=== PATIENT | male | born 1965 | race Caucasian/White ===

== ENCOUNTER → 2016-11-06 | Day surgery (SDC) | payer OTHER ==
[2016-11-06] VITALS (19 sets, daily range): BP systolic 110–128; BP diastolic 59–77; PULSE 60–78; RESP 13–22; Ht 172.7 cm; Wt 100.0 kg
[~2016-11-06] VITALS: Ht 172.7 cm; Wt 100.0 kg
[~2016-11-06] MED LIST: ACETAMINOPHEN 325 MG TAB PO PRN; AL HYDROX/MG HYDROX/SIMETH 30 ML CUP PO PRN; AMIL5TAB2 PO; FENTAnyl 50 MCG/ML VIAL ONE; FURO20TA3 PO; HEPARIN 1000 UNITS/ML 10 ML INJ ONE; IODIXANOL LOCM 100 ML BTL ONE; LIDOCAINE 1% (MDV) 20 ML INJ ONE; MIDAZOLAM 1 MG/ML 2 ML INJ ONE; NITROGLYCERIN (IC) 100 MCG/ML INJ ONE; ONDANSETRON 4 MG INJ IV PRN; PROP10TA6 PO; SOD CHLORIDE 0.9% 1,000 ML IV SCH; VERAPAMIL 5 MG INJ ONE; morphine 2 MG INJ IV PRN
[2016-11-06 11:06] LABS: ADD SCAN DIFF NO
[2016-11-06 11:17] LABS: ABNORMAL IP MESSAGE 1; BASOPHILS % 1.3 % (0.0-2.0); EOSINOPHILS # 0.2 10^3/ul (0.0-0.5); EOSINOPHILS % 5.6 % (0.0-7.0); HEMATOCRIT 38.9 % (42.0-52.0); HEMOGLOBIN 13.5 g/dl (14.0-18.0); LYMPHOCYTES # 1.1 10^3/ul (0.8-2.9); LYMPHOCYTES % 35.4 % (15.0-51.0); MEAN CORPUSCULAR HGB CONC 34.7 g/dl (32.0-37.0); MEAN CORPUSCULAR VOLUME 92.2 fl (82.0-101.0); MEAN PLATELET VOLUME 11.5 fl (7.4-10.4); MONOCYTE # 0.5 10^3/ul (0.3-0.9); MONOCYTES % 14.7 % (0.0-11.0); NEUTROPHIL # 1.4 10^3/ul (1.6-7.5); PLATELET COUNT 58 10^3/UL (140-415); RED BLOOD COUNT 4.22 10^6/ul (4.70-6.10); RED CELL DISTRIBUTION WIDTH 15.3 % (11.5-14.5); WHITE BLOOD COUNT 3.2 10^3/ul (4.8-10.8)
[2016-11-06 11:34] LABS: INR 1.65; PROTIME 19.6 Sec (12.2-14.2); PT RATIO 1.5
[2016-11-06 11:43] LABS: CHOL/HDL RATIO 2.9 RATIO
[2016-11-06 11:54] LABS: CALCIUM 8.3 mg/dl (8.4-10.2); CREATININE 0.62 mg/dl (0.61-1.24); POTASSIUM 3.8 mmol/L (3.5-5.1)
[2016-11-06 12:43] LABS: PARTIAL THROMBOPLASTIN TIME 42.6 Sec (25.0-35.0)
--- NOTE | 2016-11-06 13:00 | CARRPT ---
DATE OF PROCEDURE: 11/06/2016 TIME OF PROCEDURE: 1. Left heart catheterization. 2. Coronary angiography. 3. Left ventriculogram. 4. Moderate conscious sedation x30 minutes. ATTENDING PHYSICIAN: Alice Shields MD REFERRING PHYSICIAN: Self. INDICATION: Preoperative abnormal cardiac stress test, for liver transplant. TYPE OF ANESTHESIA: Conscious, local. BRIEF HISTORY: Mr. Aguayo is a 51-year-old male with history of liver cirrhosis who is preop f or listing for transplant of liver, who underwent cardiac stress test revealing positive ischemia. N ow brought to cardiac catheterization lab in order to assess for possibility of significant obstruct silvia coronary artery disease lending to positive stress test findings. PROCEDURE: After informed consent was obtained, the patient was brought to [facility] cardiac catheterization lab. His right radial area was prepped and draped in the usual sterile fashion. With modified Seldinger technique, a 6-[place] arterial sheath was placed in the radial ar rene. A JL3.5 catheter was used to cannulate the left main coronary ostium, after patient was noted to have a loop with spasm that was treated with nitroglycerin with improvement, after with contrast injection, multiple views of these vessels were obtained. The JL3.5 was removed over a guidewire a nd a JR4 was used to cannulate the right coronary arterial ostium. With contrast injection, multipl e views of the right coronary arterial system obtained. JR4 was then used to cross the LV and left ventricular end-diastolic pressure was measured. LV gram was undertaken revealing a preserved EF of 60% to 65%, and pullback across the aortic valve to assess for significant gradient, which there wa s not and removed. This subsequently completed the procedure. The patient's sheath was removed. T R band was applied. There were no noted complications. FINDINGS: Coronary angiography: Left main short 4.5 mm, no significant stenoses. Circumflex proxi mary 3.5 mm vessel with a mid body 20% stenosis. Remainder of the circumflex is free of significan t focal stenoses, gives off a distal branching obtuse marginal 3 mm, no significant focal stenoses. The LAD proximally is a 3.5 mm vessel and has no significant focal stenoses throughout its entirety , rounds the apex, gives off a proximal and a mid branching diagonal, each approximately 2 mm with n o significant focal stenoses. The ramus branch 2.5 mm with no significant focal stenoses, just ____ _ right on top of it but second, splits right there. The right coronary artery proximally is a 3.5 mm vessel, no significant focal stenoses. A 2 mm PDA and 2 mm posterolateral branch, each wi th no significant focal stenoses. Left ventriculogram revealed a left ventricular ejection fraction of 60% to 65%. Left ventricular e nd-diastolic pressure of 28. No significant aortic stenosis by gradient, 1+ mitral regurgitation. TOTAL FLUOROSCOPY TIME: 5.7 minutes. TOTAL CONTRAST: 70 mL. IMPRESSION: 1. Essentially normal coronary arteries with very mild nonobstructive coronary artery disease. 2. Preserved left ventricular systolic function. 3. Elevated left heart filling pressures. 4. No significant aortic stenosis by gradient. 5. 1+ mitral regurgitation. RECOMMENDATIONS: In light of procedure and findings at this time would: 1. Maximize medical management. 2. Aggressive risk factor reduction. 3. The patient at this time has no cardiac contraindication of listing for liver transplantation. Dictated By: ALICE RICHEY/BOSSMAN Conf#: [id number] DID#: [id number]
--- NOTE | 2016-11-07 00:01 | RADRPT ---
Vent Rate: 73 bpm RR Interval: 0 msec RI Interval: 146 msec QRS Duration: 86 msec QT Interval: 380 msec QTC Interval: 418 msec P-R-T [place]: 65 - 24 - 39 degrees Normal sinus rhythm Low voltage QRS Borderline ECG Electronically Signed By: Johann Meneses [id number]
--- NOTE | 2016-11-07 10:46 | RADRPT ---
PROCEDURE: XR Chest. CLINICAL INDICATION: Preop TECHNIQUE: Anterior chest x-ray. COMPARISON: None. FINDINGS: The lungs are clear. No pleural effusion identified. There is no evidence of pneumothorax. The cardiomediastinal silhouette is unremarkable. The soft tissues are normal. Osseous structures are unremarkable. IMPRESSION: 1. No acute disease is seen in the chest. RPTAT: QQ .Nicholas De Guzman MD, MD Date Time Electronically viewed and signed by .Nicholas De Guzman MD, on 11/07/2016 10:45 .M/
== END | disposition home or self-care (01) ==
LOC: SDS 10:17 → CCL 10:25
PROVIDERS: ATTEND Internal Medicine
DX: I25.10 Atherosclerotic heart disease of native coronary artery without angina pectoris (principal); I34.0 Nonrheumatic mitral (valve) insufficiency
CPT/HCPCS: 71010; 80048; 80061; 85025; 85610; 85730; 93005; 93458; C1769; C1887; J1644; J2250; J3010; Q9967; Z7610